=== PATIENT | male | born 1950 | race Caucasian/White ===

== ENCOUNTER 2016-12-03 06:45 | Outpatient (CLI) | payer MEDICARE ==
[~2016-12-03] VITALS: Ht 175.3 cm; Wt 77.1 kg
[~2016-12-03 06:45] MED LIST: METH500T35 PO; NAPR-243 PO; TRM50T PO
--- OUTSIDE RECORDS SUMMARY | 2016-12-03 06:48 | XMS REPORT ---
Author Author NICHOLAS WOOD Organization [employer] Address Unknown Phone Unavailable Care Team Providers Care Assurance Senior Name Role Phone NICHOLAS WOOD CP Unavailable Allergies No Known Allergies Problems Problem Type Condition Code Onset Dates Condition Status Problem Unspecified hypertrophic and atrophic condition of skin 701.9 Active Problem Other seborrheic keratosis 702.19 Active Medications No Known Medications Results No Known Results Summary Purpose [employer] Submission
== END 2016-12-03 14:33 ==
LOC: PREOP 06:45
PROVIDERS: ATTEND Surgery
DX: Z01.818 Encounter for other preprocedural examination (principal); K92.1 Melena

== ENCOUNTER 2016-12-07 09:18 | Day surgery (SDC) | payer MEDICARE, MEDICAID ==
[~2016-12-07] VITALS: Ht 175.3 cm; Wt 77.1 kg
[2016-12-07] MEDS ORDERED: NS IV 500 ML 500 ML IV ONE (09:30)
[2016-12-07] MEDS ORDERED: FLUMAZENIL (ROMAZICON) 0.1 MG/ML 5 ML VIAL INJ PRN (09:30)
[2016-12-07] MEDS ORDERED: NALOXONE 0.4 MG/ML 1 ML (NARCAN) VIAL IVP PRN (09:30)
[2016-12-07] MEDS ORDERED: NS IV 500 ML 500 ML ONE (09:46)
--- NOTE | 2016-12-07 09:46 | Pre-Op Note & Conscious Sedat ---
Pre-Operative Progress Note H&P Reviewed The H&P was reviewed, patient examined and no changes noted. Date H&P Reviewed: Dec 07, 2016 Time H&P Reviewed: 09:46 Pre-Op Diagnosis: heme-positive stools Conscious Sedation Pre-Proced ASA Class: 2 Airway Mallampati Classification: ([place] appropriate class) I. II. III, IV Lungs Heart ASA score ASA 1: a normal healthy patient ASA 2: a patient with a mild systemic disease (mid diabetes, controlled hypertension, obesity ASA 3: a patient with a severe systemic disease that limits activity (angina , COPD, prior Myocardial infarction) ASA 4: a patient with an incapacitating disease that is a constant threat to life (CHF, renal failure) ASA 5: a moribund patient not expected to survive 24 hrs. (ruptured aneurysm) ASA 6: a declared brain patient whose organs are being harvested. For emergent operations, add the letter E after the classification Grade 2 Sedation Plan: Discussed options with patient/fam Note The patient is an appropriate candidate to undergo the planned procedure, sedation, and anesthesia. The patient immediately re-assessed prior to indication. JEN PETERSEN MD Dec 07, 2016 9:46 am
[2016-12-07 09:50] VITALS: BP 148/101
[2016-12-07] MEDS ORDERED: fentaNYL INJECTION 100 MCG/2 ML AMP ONE (10:06)
[2016-12-07] MEDS ORDERED: MIDAZOLAM 2 MG/2 ML (VERSED) VIAL ONE ×3 (10:07)
[2016-12-07] MEDS: fentaNYL INJECTION 100 MCG/2 ML AMP IVP PRN ×2 (10:16→10:20)
[2016-12-07] MEDS: MIDAZOLAM 2 MG/2 ML (VERSED) VIAL IVP PRN ×3 (10:17→10:30)
--- NOTE | 2016-12-07 11:10 | Progress Note-Post Operative ---
Post-Operative Progess Note Pre-Operative Diagnosis heme-positive stools Post-Operative Diagnosis 1.sigmoid diverticulosis 2. 12 mm sessile polyp at the hepatic flexure Post-Op Procedure Note Date of Procedure: Dec 07, 2016 Name of Procedure: 1.colonoscopy to cecum 2. Submucosal injection of saline and the snare polypectomy 3. Tattooing of polypectomy site Anesthesia Type sedation Specimen(s) collected flat polyp from hepatic flexure JEN PETERSEN MD Dec 07, 2016 11:10 am
--- NOTE | 2016-12-07 11:12 | Discharge Inst-Simple/Standard ---
Discharge Inst-Standard Discharge Medications New, Converted or Re-Newed RX: Other Patient Instructions/Follow Up Plan of Care/Instructions/FU: follow-up with me in this afternoon(12/10/16) Activity as Tolerated: Yes Discharge Diet: No Restrictions JEN PETERSEN MD Dec 07, 2016 11:12 am
[2016-12-07 11:20] VITALS: BP 133/93
--- NOTE | 2016-12-07 11:48 | PROCEDURE REPORT ---
PROCEDURE PHYSICIAN: JEN PETERSEN DATE OF PROCEDURE: 12/07/2016 PROCEDURE: 1. Colonoscopy to cecum. 2. Snare polypectomy. 3. Tattooing polypectomy site. SURGEON: Nader INDICATION FOR THE PROCEDURE: This gentleman was found to have heme-positive stools. He had never undergone screening colonoscopy in his lifetime. He came in for colonoscopy for further evaluation. Informed consent was obtained after reviewing the procedure in detail. DESCRIPTION OF PROCEDURE: He was placed in left lateral decubitus position and his vital signs were monitored. Conscious sedation was achieved using Versed and fentanyl. Digital rectal examination was unremarkable. The colonoscope was then introduced into the rectum and advanced to the cecum. It was then withdrawn slowly and the mucosa examined in a systematic fashion. FINDINGS: 1. Very few sigmoid diverticulae. 2. A sessile polyp about 12 mm in diameter, occupying the hepatic flexure. Saline was injected into the submucosal plane, to raise the surface of the polyp and subsequently, it was snared in two sessions. Both segments were removed using a Cobos net device and sent for histologic examination. 3. The area was then tattooed with Cee ink for identification, should a carcinoma be discovered. He tolerated the procedure well and was taken back to the nursing area in a stable condition. IMPRESSION: 1. Heme positive stools. 2. Sessile polyp at the hepatic flexure. 3. Pathology pending. Job ID: [id number] Dictated Date: 12/07/2016 11:09:41 Garden Equipment Mechanic Date: 12/07/2016 11:43:32 / juany CASTANEDA
[2016-12-07 11:50] VITALS: BP 135/94
[2016-12-07 12:25] VITALS: BP 135/94
== END 2016-12-07 12:25 | disposition home or self-care (01) ==
LOC: ENDO 09:18
PROVIDERS: ATTEND Surgery
DX: K92.1 Melena (principal); D12.3 Benign neoplasm of transverse colon; K57.30 Diverticulosis of large intestine without perforation or abscess without bleeding
CPT/HCPCS: 88305

== ENCOUNTER → 2020-06-05 | Outpatient (CLI) | payer MEDICAID, MEDICARE ==
[~2020-06-05] VITALS: Ht 170 cm; Wt 79.0 kg
[~2020-06-05] MED LIST changes: +CATHETER FLUSH 10 ML SYR IV PRN; +REGADENOSON 0.4 MG/5 ML SYR (LEXISCAN) IV ONE
[2020-06-05 14:47] VITALS: BP 121/79
--- NOTE | 2020-06-05 14:47 | Cardiology Stress Test Report ---
Stress Test Report Date of Procedure/Referring: Date of Procedure: Jun 05, 2020 PCP Jocelin Blum MD Admitting Physician Ann Orta DO Indications: chest pain Baseline Heart Rate: 56 Baseline Blood Pressure: Blood Pressure Systolic: 121 Blood Pressure Diastolic: 79 Baseline EKG: Baseline EKG: sinus rhythm, right bundle branch block Summary After explaining the procedure to the patient, he signed a consent and then brought to the stress nuclear laboratory. Patient received 0.4 mg Lexiscan for stress test, ECG, heart rate and blood pressure were monitored continuously. Resting and stress dose of radio tracer were injected, imaging was acquired and reviewed in short axis, horizontal long axis and vertical long axis views. TID: 1.01 SSS: 14 SDS: 1 EF: 45 1. Patient tolerated Lexiscan well 2. Baseline right bundle branch block persisted during test 3. Diaphragmatic attenuation with fixed defect involving the whole inferior wall and inferior septum with no significant reversibility 4. Normal left ventricular size with mild to moderate hypokinesia at the infe rior wall and inferoseptum, EF 45 percent 5. The inferior wall is not akinetic, consider viability study JOCELIN BLUM MD Jun 05, 2020 14:47
== END ==
LOC: CARD 10:52
PROVIDERS: ATTEND Internal Medicine Cardiovascular Disease
DX: I45.10 Unspecified right bundle-branch block (principal); J98.6 Disorders of diaphragm; I11.9 Hypertensive heart disease without heart failure; E78.2 Mixed hyperlipidemia; Z82.49 Family history of ischemic heart disease and other diseases of the circulatory system
CPT/HCPCS: 78452; 93017; 93306; A9502

== ENCOUNTER 2021-11-03 05:41 | Outpatient (CLI) | payer MEDICARE ==
[~2021-11-03] VITALS: Ht 170.8 cm; Wt 79.1 kg
[~2021-11-03 05:41] MED LIST changes: -CATHETER FLUSH 10 ML SYR IV PRN; -REGADENOSON 0.4 MG/5 ML SYR (LEXISCAN) IV ONE
[2021-11-05] MEDS ORDERED: ATOR10TA66 PO (15:43)
[2021-11-05] MEDS ORDERED: ASPI-906 PO (15:43)
[2021-11-05] MEDS ORDERED: OMEG-154 PO (15:43)
[2021-11-05] MEDS ORDERED: METO50TA7 PO (15:43)
[2021-11-05] MEDS ORDERED: MULT1CAP60 PO (15:43)
[2021-11-05] MEDS ORDERED: PANT40TA52 PO (15:43)
[2021-11-05] MEDS ORDERED: NAPR220C61 PO (15:43)
[2021-11-05] MEDS ORDERED: GARL500C2 PO (15:43)
== END 2021-11-07 16:52 | disposition home or self-care (01) ==
LOC: PREOP 05:41
PROVIDERS: ATTEND Specialist
DX: Z01.818 Encounter for other preprocedural examination (principal)

== ENCOUNTER 2021-11-10 07:25 | Day surgery (SDC) | payer MEDICARE ==
[~2021-11-10] VITALS: Ht 17.2 cm; Wt 79.1 kg
[~2021-11-10 07:25] MED LIST changes: +ASPI-906 PO; +ATOR10TA66 PO; +GARL500C2 PO; +METO50TA7 PO; +MULT1CAP60 PO; +NAPR220C61 PO; +OMEG-154 PO; +PANT40TA52 PO
[2021-11-10] MEDS: TETRACAINE 0.5% OPHTH SOLN 4 ML BTL (SINGLE DOSE ONLY) OU PRN ×4 (07:44→08:00)
[2021-11-10] MEDS ORDERED: LIDOCAINE PF 1% 2 ML VIAL IR PRN (07:45)
[2021-11-10] MEDS ORDERED: TIMOLOL MALEATE 0.5% 5 ML (TIMOPTIC) BTL OU PRN (07:45)
[2021-11-10] MEDS ORDERED: POVIDONE (BETADINE) OPHTH SOLN 5% 30 ML OP ONE (07:45)
[2021-11-10] MEDS ORDERED: MOXIFLOXACIN OPHTH SOLN 5 MG/ML 0.3 ML SYRINGE OP ONE (07:45)
[2021-11-10] MEDS: PHENYLEPHRINE 10% OPHTH (NEO-SYN) 5 ML BTL OU SCH ×3 (07:50→08:00)
[2021-11-10] MEDS: TROPICAMIDE 1% OPH SOLN (MYDRIACYL) 15 ML BTL OP SCH ×3 (07:50→08:00)
[2021-11-10 08:03] VITALS: BP 163/83
[2021-11-10] MEDS ORDERED: MIDAZOLAM 2 MG/2 ML (VERSED) VIAL ONE (08:18)
--- NOTE | 2021-11-10 08:30 | Ophthalmologist Pre-Op Note ---
Pre-Operative Progress Note H&P Reviewed The H&P was reviewed, patient examined and no changes noted. Date H&P Reviewed: Nov 10, 2021 Time H&P Reviewed: 08:30 Pre-Op Dx Cataract, Right Eye SUSHIL TAYLOR MD Nov 10, 2021 08:30
--- NOTE | 2021-11-10 08:50 | Ophthalmology Operative Report ---
Cataract removal/placement IOL PREOPERATIVE DIAGNOSIS: Cataract Left Eye POSTOPERATIVE DIAGNOSIS: Cataract Left Eye PROCEDURE: Cataract removal and placement of posterior chamber implant, left eye SURGEON: Jarred Taylor ANESTHESIA: Topical with sedation COMPLICATIONS: None ESTIMATED BLOOD LOSS: Minimal DESCRIPTION OF PROCEDURE: After proper informed consent was obtained, the patient, a 71 male, was taken to the Operating Room and the left eye was anesthetized with tetracaine. The left eye was then prepped and draped in the usual manner. A wire lid speculum was placed. A paracentesis was made at the left hand position. Preservative free lidocaine was injected into the anterior chamber followed by viscoelastic. A clear corneal incision was made in the temporal position. A capsulorrhexis was preformed and the central nuclear and cortical material were removed. The posterior capsule was polished and an Preet 20.0 AU00T0 was placed into the capsular bag. The residual viscoelastic was aspirated and balanced saline solution was injected into the anterior chamber. Moxifloxacin was injected into the anterior chamber. The wound was checked and found to be water tight. The patient tolerated the procedure well without complications. JARRED TAYLOR MD Nov 10, 2021 08:50
[2021-11-10 08:53] VITALS: BP 125/83
[2021-11-10] MEDS ORDERED: acetaZOLAMIDE ER 500 MG CAP (DIAMOX SEQUELS) PO ONE (09:00)
--- NOTE | 2021-11-10 12:53 | Anesthesia-General Post-Op ---
MAC Patient Condition Mental Status/LOC: Same as Preop Cardiovascular: Satisfactory Nausea/Vomiting: Absent Respiratory: Satisfactory Pain: Controlled Complications: Absent Post Op Complications Complications None Follow Up Care/Instructions Patient Instructions None needed. Anesthesiology Discharge Order Discharge Order Patient was doing well this morning after the procedure, no complaints, stable vital signs, no apparent adverse anesthesia problems. JAYJAY LEARY DO Nov 10, 2021 12:53
== END 2021-11-10 08:58 | disposition home or self-care (01) ==
LOC: SDC 07:25
PROVIDERS: ATTEND Specialist
DX: H25.12 Age-related nuclear cataract, left eye (principal); K21.9 Gastro-esophageal reflux disease without esophagitis; E78.00 Pure hypercholesterolemia, unspecified; I10 Essential (primary) hypertension; Z79.899 Other long term (current) drug therapy; Z79.82 Long term (current) use of aspirin
CPT/HCPCS: 66984; V2632

== ENCOUNTER 2021-11-28 10:17 | Day surgery (SDC) | payer MEDICARE ==
[~2021-11-28] VITALS: Ht 175.2 cm; Wt 79.1 kg
[2021-11-28] MEDS: TETRACAINE 0.5% OPHTH SOLN 4 ML BTL (SINGLE DOSE ONLY) OU PRN ×4 (10:27→10:43)
[2021-11-28] MEDS ORDERED: POVIDONE (BETADINE) OPHTH SOLN 5% 30 ML OP ONE (10:30)
[2021-11-28] MEDS ORDERED: MOXIFLOXACIN OPHTH SOLN 5 MG/ML 0.3 ML SYRINGE OP ONE (10:30)
[2021-11-28] MEDS ORDERED: TIMOLOL MALEATE 0.5% 5 ML (TIMOPTIC) BTL OU PRN (10:30)
[2021-11-28] MEDS ORDERED: LIDOCAINE PF 1% 2 ML VIAL IR PRN (10:30)
[2021-11-28] MEDS: PHENYLEPHRINE 10% OPHTH (NEO-SYN) 5 ML BTL OU SCH ×3 (10:33→10:43)
[2021-11-28] MEDS: TROPICAMIDE 1% OPH SOLN (MYDRIACYL) 15 ML BTL OP SCH ×3 (10:33→10:43)
[2021-11-28 10:39] VITALS: BP 153/97
[2021-11-28] MEDS ORDERED: MIDAZOLAM 2 MG/2 ML (VERSED) VIAL ONE (10:46)
--- NOTE | 2021-11-28 11:00 | Ophthalmologist Pre-Op Note ---
Pre-Operative Progress Note H&P Reviewed The H&P was reviewed, patient examined and no changes noted. Date H&P Reviewed: Nov 28, 2021 Time H&P Reviewed: 10:59 Pre-Op Dx Cataract, Right Eye SUSHIL TAYLOR MD Nov 28, 2021 11:00
--- NOTE | 2021-11-28 11:22 | Ophthalmology Operative Report ---
Cataract removal/placement IOL PREOPERATIVE DIAGNOSIS: Cataract Right Eye POSTOPERATIVE DIAGNOSIS: Cataract Right Eye PROCEDURE: Cataract removal and placement of posterior chamber implant, right eye SURGEON: Jarred Taylor ANESTHESIA: Topical with sedation COMPLICATIONS: None ESTIMATED BLOOD LOSS: Minimal DESCRIPTION OF PROCEDURE: After proper informed consent was obtained, the patient, a 71 male, was taken to the Operating Room and the right eye was anesthetized with tetracaine. The right eye was then prepped and draped in the usual manner. A wire lid speculum was placed. A paracentesis was made at the left hand position. Preservative free lidocaine was injected into the anterior chamber followed by viscoelastic. A clear corneal incision was made in the temporal position. A capsulorrhexis was preformed and the central nuclear and cortical material were removed. The posterior capsule was polished and Preet 20.5 AU00T0 IOL was placed into the capsular bag. The residual viscoelastic was aspirated and balanced saline solution was injected into the anterior chamber. Moxifloxacin was injected into the anterior chamber. The wound was checked and found to be water tight. The patient tolerated the procedure well without complications. JARRED TAYLOR MD Nov 28, 2021 11:22
[2021-11-28 11:29] VITALS: BP 161/99
[2021-11-28] MEDS ORDERED: acetaZOLAMIDE ER 500 MG CAP (DIAMOX SEQUELS) PO ONE (12:30)
--- NOTE | 2021-11-28 12:57 | Anesthesia-General Post-Op ---
MAC Patient Condition Mental Status/LOC: Same as Preop Cardiovascular: Satisfactory Nausea/Vomiting: Absent Respiratory: Satisfactory Pain: Controlled Complications: Absent Post Op Complications Complications None Follow Up Care/Instructions Patient Instructions None needed. Anesthesiology Discharge Order Discharge Order Patient was doing well after the procedure, no complaints, stable vital signs, no apparent adverse anesthesia problems. JAYJAY LEARY DO Nov 28, 2021 12:57
== END 2021-11-28 11:32 | disposition home or self-care (01) ==
LOC: SDC 10:17
PROVIDERS: ATTEND Specialist
DX: H25.9 Unspecified age-related cataract (principal); I10 Essential (primary) hypertension; E78.00 Pure hypercholesterolemia, unspecified; H40.9 Unspecified glaucoma; K21.9 Gastro-esophageal reflux disease without esophagitis; Z79.82 Long term (current) use of aspirin; Z79.899 Other long term (current) drug therapy
CPT/HCPCS: 66984; V2632

== ENCOUNTER 2022-02-25 11:12 | Outpatient (CLI) | payer MEDICARE ==
[~2022-02-25] VITALS: Ht 170.2 cm; Wt 83.5 kg
[2022-02-25] MEDS ORDERED: GARL10002 PO (12:51)
[2022-02-25] MEDS ORDERED: MTP25TSR PO (12:51)
[2022-02-25] MEDS ORDERED: OFLO5DRO3 OP (12:51)
[2022-02-25] MEDS ORDERED: LOTE5DRO7 OP (12:51)
== END 2022-02-25 13:23 | disposition home or self-care (01) ==
LOC: PREOP 11:12
PROVIDERS: ATTEND Surgery
DX: Z01.818 Encounter for other preprocedural examination (principal)

== ENCOUNTER 2022-03-10 07:07 | Day surgery (SDC) | payer MEDICARE ==
[~2022-03-10] VITALS: Ht 170 cm; Wt 83.5 kg
[~2022-03-10 07:07] MED LIST changes: +GARL10002 PO; +LOTE5DRO7 OP; +MTP25TSR PO; +OFLO5DRO3 OP
[2022-03-10] MEDS ORDERED: LACTATED RINGERS 1,000 ML IV STA (07:16)
[2022-03-10 07:29] VITALS: BP 133/93
[2022-03-10] MEDS ORDERED: PROPOFOL INJECTION 50 ML IV ONE (07:34)
--- NOTE | 2022-03-10 09:24 | Progress Note-Post Operative ---
Post-Operative Progess Note Surgeon (s)/Supervisor [employer] (s) Surgeon EBONIE MAR DO Supervisor [employer]: na Pre-Operative Diagnosis hx polyps Post-Operative Diagnosis sigmoid polyp, diverticulosis Procedure & Operative Findings Date of Procedure 03/10/22 Procedure Performed/Findings colonoscopy c snare polypectomy Anesthesia Type per head banquet waiter/waitress Estimated Blood Loss Estimated blood loss (mL): none Specimens/Packing Specimens Removed sigmoid polyp EBONIE MAR DO March 10, 2022 09:24
[2022-03-10 09:25] VITALS: BP 100/63
--- NOTE | 2022-03-10 09:25 | Discharge Inst-Simple/Standard ---
Discharge Inst-Standard Patient Instructions/Follow Up Plan of Care/Instructions/FU: 2 weeks Antonio Activity as Tolerated: Yes Discharge Diet: Regular Diet (high fiber) EBONIE MAR DO March 10, 2022 09:25
[2022-03-10 09:30] VITALS: BP 101/62
[2022-03-10 09:34] VITALS: BP 104/66
[2022-03-10 09:59] VITALS: BP 119/81
--- NOTE | 2022-03-10 11:26 | Anesthesia-General Post-Op ---
MAC Patient Condition Mental Status/LOC: Same as Preop Cardiovascular: Satisfactory Nausea/Vomiting: Absent Respiratory: Satisfactory Pain: Controlled Complications: Absent Post Op Complications Complications None Follow Up Care/Instructions Patient Instructions None needed. Anesthesiology Discharge Order Discharge Order Patient is doing well, no complaints, stable vital signs, no apparent adverse anesthesia problems. No complications reported per nursing. THOMAS PORTILLO CRNA March 10, 2022 11:26
--- NOTE | 2022-03-10 11:34 | OPERATIVE REPORT ---
DATE OF SERVICE: 03/10/2022 PREOPERATIVE DIAGNOSIS: History of colon polyps. POSTOPERATIVE DIAGNOSES: Diverticulosis, sigmoid colon polyp. PROCEDURE: Colonoscopy with snare polypectomy. SURGEON: Ebonie Alvarez DO ANESTHESIA: Per FOURDRINIER OPERATOR. ESTIMATED BLOOD LOSS: None. COMPLICATIONS: None. INDICATIONS: The patient is a 71-year-old male needing screening colonoscopy due to history of polyps. He understands risks and benefits of procedure and wishes to proceed. Consent was signed in the chart. DESCRIPTION OF PROCEDURE: The patient was taken to the endoscopy suite, placed in the left lateral recumbent position. Timeout was performed. Digital rectal exam was performed. No palpable polyps, masses or ulcerations. Scope was inserted in the rectum and advanced all the way to cecum with minimal difficulty. Prep was adequate. Scope was slowly retracted back. No polyps, masses or ulcerations in the cecum, ascending, transverse and descending colon. In the sigmoid colon, a polyp was present, which snare polypectomy was performed and then the scope was then continuously retracted back, diverticulosis present in the sigmoid colon. Once in the rectum, scope was retroflexed just noting some hemorrhoids. Scope was returned to its normal position, slowly withdrawn until completely removed. The patient tolerated the procedure well without any complications, taken to recovery room in stable condition. RECOMMENDATIONS: The patient will need repeat colonoscopy in 5 years. Any issues before that be seen at that time. The patient recommended high fiber diet. CC: Arthur Lamb - requested, unable to deliver. Job ID: [id number] DocumentID: [id number] Dictated Date: 03/10/2022 09:27:23 Sheet Fed Printer Date: 03/10/2022 11:32:54 Dictated By: EBONIE ALVAREZ DO
== END 2022-03-10 10:00 | disposition home or self-care (01) ==
LOC: ENDO 07:07
PROVIDERS: ATTEND Surgery
DX: Z12.11 Encounter for screening for malignant neoplasm of colon (principal); D12.5 Benign neoplasm of sigmoid colon; K57.30 Diverticulosis of large intestine without perforation or abscess without bleeding; Z87.891 Personal history of nicotine dependence